=== PATIENT | male | born 1930 | race Caucasian/White ===

== ENCOUNTER 2017-04-27 09:23 | Day surgery (SDC) | payer OTHER, MEDICARE ==
[~2017-04-27 09:23] MED LIST: ceFAZolin 2 GM/DEXTROSE 100 ML IV ONE
[2017-04-27] MEDS ORDERED: ONDANSETRON 4 MG/2 ML VIAL IVP PRN ×2 (09:38→12:12)
[2017-04-27] MEDS ORDERED: OXYCODONE/APAP 5/325 TAB PO PRN ×2 (09:38→12:12)
[2017-04-27] MEDS ORDERED: ONDANSETRON DISINTEGRATING 4 MG TAB PO PRN (09:38)
[2017-04-27] MEDS ORDERED: LR 1,000 ML IV ONE (09:42)
[2017-04-27] MEDS ORDERED: LIDOCAINE 1% 2 ML INJ ID PRN (09:42)
[2017-04-27] MEDS ORDERED: ROPIVACAINE HCL 20 MG/10 ML INJ EP ONE (10:15)
--- NOTE | 2017-04-27 10:19 | PDANEPAE ---
ANE History of Present Illness RTC tear ANE Past Medical History - Cardiovascular History Hx Hypertension: Yes Hx Arrhythmias: No Hx Chest Pain: No Hx Coronary Artery / Peripheral Vascular Disease: Yes Hx CHF / Valvular Disease: No Hx Palpitations: No - Pulmonary History Hx COPD: No Hx Asthma/Reactive Airway Disease: No Hx Recent Upper Respiratory Infection: No Hx Oxygen in Use at Home: No - Neurologic History Hx Cerebrovascular Accident: No Hx Seizures: No Hx Dementia: No - Endocrine History Hx Diabetes: No - Renal History Hx Renal Disorders: No - Liver History Hx Hepatic Disorders: No - Neurological & Psychiatric Hx Hx Neurological and Psychiatric Disorders: No - Cancer History Hx Cancer: No - Congenital Disorder History Hx Congenital Disorders: No - GI History Hx Gastrointestinal Disorders: No - Chronic Pain History Chronic Pain: No ANE Review of Systems - Exercise capacity Exercise capacity: >=4 METS METS (RN): 4 METS - Systems Cardiac: Reports: no symptoms ANE Patient History - Allergies Allergies/Adverse Reactions: No Known Allergies Allergy (Verified 04/23/17 16:13) - Home Medications Home medications: home medication list seen and reviewed Home Medications: Aspirin [Aspirin 81mg (*)] 07/22/13 [Last Taken 1 Day Ago] Atenolol [Tenormin 25 mg (RX)] 25 mg PO DAILY 07/22/13 [Last Taken 1 Day Ago] Clopidogrel Bisulfate [Plavix (RX)] 75 mg PO DAILY 07/22/13 [Last Taken 07:00] Lisinopril 5 mg PO 07/22/13 [Last Taken 1 Day Ago] - NPO status NPO Since - Liquids (Date): 04/26/17 NPO Since - Solids (Date): 04/26/17 - Smoking Hx Smoking Status: Former smoker ANE Labs/Vital Signs - Vital Signs Blood Pressure: 148/74 Heart Rate: 61 Respiratory Rate: 16 O2 Sat (%): 95 Height: 176.53 cm Weight: 79.379 kg ANE Physical Exam - Airway Mallampati Score: Class 1 Mouth exam: normal dental/mouth exam - Pulmonary Pulmonary: no respiratory distress - Cardiovascular Cardiovascular: regular rate and rhythym - ASA Status ASA Status: III ANE Anesthesia Plan Anesthesia Plan: general endotracheal anesthesia Regional Anesthesia: single shot NB
[2017-04-27] MEDS ORDERED: MIDAZOLAM 2 MG/2 ML VIAL ONE (10:34)
[2017-04-27] MEDS ORDERED: fentaNYL 100 MCG/2 ML INJ ONE ×2 (10:34→11:47)
[2017-04-27] MEDS ORDERED: PROPOFOL/EMULSION 500 MG/50 ML BOTTLE IV ONE (10:37)
--- NOTE | 2017-04-27 10:51 | PDHPUP ---
History & Physical Update H&P update statement: This history and physical update is based on an assessment of the patient which was completed after admission or registration (within 24 hours), but prior to the surgery/procedure. H&P update: H&P reviewed & patient examined, no change in patient's condition since H&P completed ([facility]
[2017-04-27] MEDS ORDERED: fentaNYL 100 MCG/2 ML INJ IVP PRN (12:12)
[2017-04-27] MEDS ORDERED: NALOXONE HCL 0.4 MG/ML INJ IVP PRN (12:12)
--- NOTE | 2017-04-27 13:34 | GOP ---
[f rep st] OPERATIVE REPORT DATE OF OPERATION: 04/27/2017 SURGEON: Michelle Paez MD FLAKE DRIER: Yaneth Lyles PA-C, medically required for positioning of the arm during arthroscopic shoulder surgery and careful retraction of vital neurovascular structures. PREOPERATIVE DIAGNOSIS: 1. Right shoulder partial cuff tear. 2. Right shoulder impingement. 3. Right shoulder acromioclavicular joint arthrosis. 4. Right shoulder labral tear. 5. Right shoulder synovitis. POSTOPERATIVE DIAGNOSIS: 1. Right shoulder partial cuff tear. 2. Right shoulder impingement. 3. Right shoulder acromioclavicular joint arthrosis. 4. Right shoulder labral tear. 5. Right shoulder synovitis. PROCEDURE PERFORMED: 1. Arthroscopic right shoulder labral debridement. 2. Arthroscopic subacromial decompression. 3. Arthroscopic distal clavicle excision. 4. Arthroscopic extensive synovectomy and bursectomy. FINDINGS: ESTIMATED BLOOD LOSS: Minimal. INDICATIONS: Trent is an 86-year-old male with right shoulder pain, failed nonsurgical measures. Clinical radiographic, advanced radiographic images show impingement anatomy, partial cuff tear with inflammation. Patient elects for operative intervention after failure of conservative management. DESCRIPTION OF PROCEDURE: Patient identified in the preoperative holding area. Consent laterality and preoperative antibiotics were confirmed and delivered. All questions were answered. His significant other was at the bedside. Preoperative evaluation was reviewed. He was deemed fit for surgery. Patient brought into the operating room. Surgical site was identified. Patient placed under general anesthesia. Patient placed in a beach chair position. All extremities and down legs were padded well. The right upper extremity was prepped and draped in usual sterile fashion. Surgical time-out was performed. Standard posterior portal technique diagnostic arthroscopy included a type 1 SLAP tear with frayed superior and anterior labrum. Cartilage looked excellent , grade 1 on the glenoid, grade 1 on the humeral head. The biceps was well located. The subscap had no tears. The rotator cuff at the supraspinatus, infraspinatus had a partial articular sided tear, less than 20%. Otherwise, pretty young looking shoulder for his age. Therapeutic arthroscopy included labral debridement from anterior interval portal, rotator cuff debridement, extensive synovectomy. We pulled the biceps into the joint, had inflammation of the biceps tendon but no jose tearing. Attention was then turned to the subacromial space. Thickened bursa. Calcific CA ligament. Had a large downsloping antral lateral spur. The medial clavicle had a stalactite. We did an anterior and lateral acromioplasty about 3 mm. Did a distal clavicle excision about 3 mm. We worked from a lateral and a posterior cutting block portal. We did a thorough bursectomy preserving the medial bursa into the lateral gutter. We used a posterolateral sweep and cleared the bursa from the anterior, posterior, and lateral gutters. The rotator cuff looked excellent from the top. Arthroscopic fluid and debris was removed. Portal sites closed with 4-0 Monocryl. 20 cc of 0.2% ropivacaine were injected throughout the incisions. A sterile dressing was applied with Mastisol, Steri-Strips, Xeroform, 4 x 4's, ABD , and Medipore tape. COMPLICATIONS: None. DISPOSITION: Extubated to PACU in stable condition. /[id number]/MODL MTDD
[2017-04-27 14:09] VITALS: RESP 16
[2017-04-27 15:47] VITALS: BP 119/63; PULSE 55; TEMP 97.5; O2SAT 95
== END 2017-04-27 15:43 | disposition home or self-care (01) ==
LOC: FSGY 09:23
PROVIDERS: ATTEND Orthopaedic Surgery
PROC: 0RNJ4ZZ Release Right Shoulder Joint, Percutaneous Endoscopic Approach (ICD-10-PCS; principal; 2017-04-27 10:30)
PROC: 0LQ14ZZ Repair Right Shoulder Tendon, Percutaneous Endoscopic Approach (ICD-10-PCS; principal; 2017-04-27 10:30)
DX: M75.41 Impingement syndrome of right shoulder (principal); M75.101 Unspecified rotator cuff tear or rupture of right shoulder, not specified as traumatic; M19.011 Primary osteoarthritis, right shoulder; M75.81 Other shoulder lesions, right shoulder; M65.811 Other synovitis and tenosynovitis, right shoulder; M24.111 Other articular cartilage disorders, right shoulder
CPT/HCPCS: J0690; J2250; J2704; J2795; J3010

== ENCOUNTER → 2017-09-14 | Outpatient (CLI) | payer OTHER, MEDICARE | LOC: BMCIMAGING 14:15 | PROVIDERS: ATTEND Internal Medicine | DX: I82.412 Acute embolism and thrombosis of left femoral vein (principal) ==

== ENCOUNTER → 2017-12-21 | Outpatient (CLI) | payer OTHER, MEDICARE | LOC: BMCIMAGING 14:23 | PROVIDERS: ATTEND Internal Medicine | DX: R60.9 Edema, unspecified (principal) ==

== ENCOUNTER → 2018-03-19 | Outpatient (CLI) | payer OTHER, MEDICARE | LOC: FIMAGING 09:13 | PROVIDERS: ATTEND Internal Medicine | DX: R60.0 Localized edema (principal) ==

== ENCOUNTER 2018-05-05 12:16 | Emergency (ER) | payer OTHER, MEDICARE ==
[2018-05-05 12:26] VITALS: BP 149/79
--- NOTE | 2018-05-05 12:48 | EDPHY ---
H & P Time Seen by Provider: 05/05/18 12:28 HPI/ROS: 87-year-old male presents complaining of left ear pain for approximately 3 days. He denies fevers or chills he denies drainage from his ear he denies nasal congestion or recent cold. Review of systems As per HPI General no fever no chills no weakness HEENT no eye pain no eye discharge. No eye redness, no sore throat, positive ear pain Respiratory no cough, no shortness of breath Cardiac no chest pain, no peripheral edema GI no abdominal pain, no diarrhea, no constipation, no nausea, no vomiting no flank pain, no hematuria, no dysuria Musculoskeletal no myalgias, no joint pain Heme no easy bruising, no easy bleeding Endo no polyuria, no polydipsia Skin no rashes, no pruritus Neuro no syncope, no dizziness, no headaches Psych is no suicidal ideation, no homicidal ideation Past Medical/Surgical History: Hypertension Social History: Denies alcohol or drug use Smoking Status: Former smoker Physical Exam: 87-year-old male hard of hearing, alert oriented no acute distress nontoxic appearance, afebrile Alert and oriented in no acute distress nontoxic appearance, afebrile Atraumatic normocephalic Left ear-left ear canal erythematous mildly edematous with some flaky white exudate, left tympanic membrane is opaque No discharge, no obvious wax accumulation Neck no JVD Lungs clear to auscultation, no respiratory distress Heart regular rate and rhythm Extremities no cyanosis clubbing edema Constitutional: Initial Vital Signs Temperature (C) 36.7 C 05/05/18 12:23 Heart Rate 62 05/05/18 12:23 Respiratory Rate 16 05/05/18 12:23 Blood Pressure 149/79 H 05/05/18 12:23 O2 Sat (%) 96 05/05/18 12:23 O2 Delivery Mode Room Air Allergies/Adverse Reactions: No Known Allergies Allergy (Verified 05/05/18 12:27) Home Medications: Medication Instructions Recorded Aspirin [Aspirin 81mg (*)] 07/22/13 Atenolol [Tenormin 25 mg (RX)] 25 mg PO DAILY 07/22/13 Clopidogrel Bisulfate [Plavix (RX)] 75 mg PO DAILY 07/22/13 Lisinopril 5 mg PO 07/22/13 Amoxicillin Trihydrate [Amoxil] 500 mg PO TID 7 Days cap 05/05/18 Neomy Sulf/Polymyx B Sulf/Hc 4 drops OT Q8 7 Days #1 otic.btl 05/05/18 [Cortisporin Otic Suspension] Medical Decision Making ED Course/Re-evaluation: Patient seen and evaluated for left ear pain of 3 days duration. Patient appears well Impression Left ear with evidence of left otitis externa and possible left otitis media Plan Amoxicillin three times daily x7 days Cortisporin otic three times daily x7 days Follow-up with the primary care physician Return if worsening Differential Diagnosis: Differential diagnosis considered but not limited to Otitis externa, otitis media, bullous myringitis, cerumen impaction, ear barotrauma Departure - Departure Disposition: Home, Routine, Self-Care Clinical Impression: Otitis externa, Otitis media Condition: Good Instructions: Otitis Externa (ED), Ear Infection (ED) Referrals: Laura Lee MD [Primary Care Provider] - As per Instructions Prescriptions: Amoxicillin Trihydrate [Amoxil] 500 mg PO TID 7 Days cap Neomy Sulf/Polymyx B Sulf/Hc [Cortisporin Otic Suspension] 4 drops OT Q8 7 Days #1 otic.btl
== END 2018-05-05 12:56 | disposition home or self-care (01) ==
LOC: CED 12:16
DX: H66.92 Otitis media, unspecified, left ear (principal); H60.92 Unspecified otitis externa, left ear; I10 Essential (primary) hypertension; Z79.82 Long term (current) use of aspirin; Z87.891 Personal history of nicotine dependence